=== PATIENT | female | born 1960 | race Two or more races ===

== ENCOUNTER 2025-04-03 07:57 | Day surgery (SDC) | payer OTHER ==
[2025-03-28 08:45] VITALS: BMI 32.9
[2025-04-03 09:33] VITALS: TEMP 98
[2025-04-03 10:07] VITALS: PULSE 60
[2025-04-03 10:10] VITALS: BP 121/61; RESP 14
== END 2025-04-03 10:15 | disposition home or self-care (01) ==
LOC: JASU-ENDO 07:57
PROVIDERS: ATTEND Internal Medicine Gastroenterology
PROC: 0DJD8ZZ Inspection of Lower Intestinal Tract, Via Natural or Artificial Opening Endoscopic (ICD-10-PCS; principal; 2025-04-03 08:30)
DX: Z12.11 Encounter for screening for malignant neoplasm of colon (principal)